=== PATIENT | male | born 1965 | race Caucasian/White ===

== ENCOUNTER 2021-11-15 08:10 | Outpatient (REF) | payer BC, SELFPAY ==
--- NOTE | 2021-11-15 16:23 | MHC.AU.ANR ---
Adult Audiological Evaluation Date of Visit: 11/15/21 Reason for Appointment: Audiological evaluation due to concern for decreased hearing. Mr. Mendoza reports trouble hearing especially in the presence of background noise and when talking on the phone. He also notes tinnitus bilaterally. Mr. 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 He notes that he has his hearing tested annually at work. Does patient feel they have a hearing loss?: Yes If Yes, Which Ear?: Both Ears When Was Hearing Difficulty First Noticed?: ~10 years ago Has hearing been tested previously?: No Hearing Handicap Inventory: HHIE SCORE: 32 Based on HHIE score, patient has: Severe perceived hearing handicap Ear History: Bothersome Tinnitus/Ringing/Noises in Ears: Both Ears Medical History: Medical History: High Blood Pressure Medical History (Other): Knee replacements in December 2017 and November 2019 Allergies: Penicillin Medication List: HCTZ 25 mg 1x daily, Losartan 100 mg 1x daily, Amlodipine 5 mg 1x daily, Atorvastatin 80 mg 1x daily, Aspirin 81 mg 1x daily, Metformin 1000 mg 2x daily, multivitamin Otoscopy: Right Ear: Unremarkable Left Ear: Unremarkable Tympanometry: Tympanometry performed due to: To assess integrity of the middle ear system Right Ear: Normal Middle Ear System (Type A) Left Ear: Normal Middle Ear System (Type A) Hearing Evaluation: Transducer(s) Used: Insert Earphones, Bone Conduction Method: Conventional Audiometry Stimuli Used: Pure Tones Right Ear: Description of Hearing: Normal hearing 250-750 Hz, sloping to a mild conductive hearing loss at 1000 Hz, rising to normal hearing 5705-0955 Hz, and steeply sloping to a moderately-severe to severe sensorineural hearing loss from 0697-3739 Hz. Left Ear: Description of Hearing: Normal hearing from 250-2000 Hz, steeply sloping to a moderate to moderately-severe sensorineural hearing loss 3083-6145 Hz. Speech Recognition Threshold (SRT): Method Used: Monitored Live Voice Stimuli Used: Spondee Words Right Ear: 15 dBHL Left Ear: 15 dBHL Word Discrimination: Method: Recorded Lists Word Lists Used: NU-6 Right Ear: 96% at 70 dBHL Left Ear: 100% at 70 dBHL QuickSIN: 4 dB SNR loss when present binaurally at 70 dBHL, indicating a mild [id number]-il-eulac understanding deficit. Recommendations: Audiological re-evaluation in one year. Trial with amplification is recommended. Based on type and degree of hearing loss and patient's report of communication difficulties, binaural amplification is recommended. Mr. Mendoza is interested in trying a pair of DAVID style hearing aids. Hearing aids were ordered today. Diagnosis: Primary Diagnosis: H90.3 Bilateral Sensorineural Hearing Loss Secondary Diagnosis: H93.13 Tinnitus, Bilateral Services Performed: Services Performed: Comprehensive Audiological Evaluation (CPT 11479) Tympanometry (CPT 70001) Unlisted Otorhinolaryngological Service or Procedure (CPT 07381) Signature: Provider: Pascale Parson, CCC-A
== END 2021-11-15 08:11 | disposition home or self-care (01) ==
LOC: HO.SH 08:10
PROVIDERS: Visit Provider Pediatrics
DX: H90.3 Sensorineural hearing loss, bilateral (principal); H93.13 Tinnitus, bilateral
CPT/HCPCS: 92557; 92567; 92700

== ENCOUNTER 2021-11-15 09:48 | Outpatient (REF) | payer SELFPAY | END 2021-11-15 09:49 | disposition home or self-care (01) | LOC: HO.HAP 09:48 | PROVIDERS: Visit Provider Pediatrics | DX: Z46.1 Encounter for fitting and adjustment of hearing aid (principal); H90.3 Sensorineural hearing loss, bilateral; H93.13 Tinnitus, bilateral | CPT/HCPCS: 92591 ==

== ENCOUNTER 2021-12-13 08:19 | Outpatient (REF) | payer SELFPAY | END 2021-12-13 08:20 | disposition home or self-care (01) | LOC: HO.HAP 08:19 | PROVIDERS: Visit Provider Pediatrics | DX: Z46.1 Encounter for fitting and adjustment of hearing aid (principal); H90.3 Sensorineural hearing loss, bilateral; H93.13 Tinnitus, bilateral | CPT/HCPCS: V5261 ==

== ENCOUNTER 2021-12-28 08:20 | Outpatient (REF) | payer SELFPAY | END 2021-12-28 08:21 | disposition home or self-care (01) | LOC: HO.HAP 08:20 | PROVIDERS: Visit Provider Pediatrics | DX: Z13.89 Encounter for screening for other disorder (principal) ==

== ENCOUNTER 2023-02-22 07:51 | Outpatient (REF) | payer BC, SELFPAY | END 2023-02-22 07:52 | disposition home or self-care (01) | LOC: HO.SH 07:51 | PROVIDERS: Visit Provider Internal Medicine | DX: Z01.118 Encounter for examination of ears and hearing with other abnormal findings (principal); H90.3 Sensorineural hearing loss, bilateral | CPT/HCPCS: 92557; 92700 ==

== ENCOUNTER 2024-09-01 14:18 | Outpatient (REF) | payer SELFPAY ==
--- NOTE | 2024-09-01 15:01 | MHC.AU.HA3 ---
Hearing Instrument Follow-Up- Binaural Date of Visit: 09/01/24 Right Ear: Nnamdi, Model, Color, Serial Number: Kirk Cotto [id number] SN: [id number] Color: Graphite [employer] Warranty: 02/13/2025 [employer] Loss and Damage Warranty: 02/13/2025 Battery Size: 13 Shipping Specialist/Slim Tube: 1M Earmold/Dome/CShell/SlimTip:Medium open dome with retention tail Type of Wax Guard: Cerushield Dispensed By: [facility] Date of Fittin12/13/2021 Left Ear: Nnamdi, Model, Color, Serial Number: Kirk Cotto [id number] SN: [id number] Color: Graphite [employer] W[employer]y: 02/13/2025 [employer] Loss and Damage Warranty: 02/13/2025 Battery Size: 13 Shipping Specialist/Slim Tube: 1M Earmold/Dome/CShell/SlimTip: Medium open dome with retention tail Type of Wax Guard: Cerushield Dispensed By: [facility] Date of Fittin12/13/2021 Follow-Up Summary: Right city routeman broken. Cleaned both HAs. Vacuumed microphones. Ran through dehumidifier. Replaced both receivers as HAs still under warranty until January 2025. Replaced domes and retention tails. Listening check demonstrated HAs amplifying clearly. Discussed end of warranty and any appointments after 02/13/2025 will incur [id number]. Recommendations: Hearing instrument follow-up or maintenance as needed. Please contact our clinic with any questions or concerns. Diagnosis Code(s): Primary Diagnosis: H90.3 Bilateral Sensorineural Hearing Loss Signature: Provider: Danny Barreto, [facility]
== END 2024-09-01 14:19 | disposition home or self-care (01) ==
LOC: HO.HAP 14:18
PROVIDERS: Visit Provider Pediatrics
DX: Z13.89 Encounter for screening for other disorder (principal)